=== PATIENT | female | born 1980 | race Caucasian/White ===

== ENCOUNTER 2016-12-10 08:57 | Observation (INO) | payer OTHER ==
[~2016-12-10] VITALS: Ht 160 cm; Wt 65.2 kg
[2016-12-10] VITALS (7 sets, daily range): BP systolic 106–129; BP diastolic 62–84; PULSE 72–98; RESP 16–18; TEMP 96.8–98.2; O2SAT 98–100
[2016-12-10] MEDS ORDERED: cefTRIAXone INJ 1,000 MG in SODIUM CHLORIDE 0.9% INJ 100 ML IV ONE (09:45)
[2016-12-10 10:10] LABS: GLUCOSE,URINE NEG (NEG); KETONE, URINE NEG (NEG); NITRITE,URINE NEG (NEG); PH, URINE 5.5 (5.0-8.5)
[2016-12-10 10:11] LABS: BLOOD, URINE MOD (NEG)
[2016-12-10 10:15] LABS: AUTOMATED NEUTROPHIL # 8.5 TH/MM3 (1.8-7.7); BASOPHIL # 0.2 TH/MM3 (0-0.2); BASOPHIL % 1.2 % (0.0-2.0); EOSINOPHIL # 0.3 TH/MM3 (0-0.4); EOSINOPHIL % 2.1 % (0.0-4.0); HEMATOCRIT 41.1 % (35.0-46.0); LYMPH % 21.1 % (9.0-44.0); LYMPHOCYTE # 2.7 TH/MM3 (1.0-4.8); MEAN CORPUSCULAR HEMOGLOBIN 28.8 PG (27.0-34.0); MEAN CORPUSCULAR HGB CONC 33.1 % (32.0-36.0); METHOD OF COLLECTION CLEAN CATCH; MONO % 6.8 % (0.0-8.0); NEUT % 68.8 % (16.0-70.0); PLATELET COUNT 327 TH/MM3 (150-450); RED BLOOD COUNT 4.72 MIL/MM3 (4.00-5.30); RED CELL DISTRIBUTION WIDTH 14.3 % (11.6-17.2); URINE COLOR YELLOW (YELLW/STRAW); WHITE BLOOD COUNT 12.6 TH/MM3 (4.0-11.0)
[2016-12-10 10:16] LABS: COMMENT (UR) CULT NOT INDICATED; CULTURE IF INDICATED CULT NOT INDICATED; WBC, URINE 0-2 /hpf (0-5)
[2016-12-10 10:19] LABS: HEMO FLAGS DIFF FINAL
[2016-12-10 10:25] LABS: CHLORIDE 108 MEQ/L (98-107); POTASSIUM 3.5 MEQ/L (3.5-5.1); SODIUM (NA) 141 MEQ/L (136-145)
[2016-12-10 10:32] LABS: ANION GAP 7 MEQ/L (5-15); BICARBONATE 26.2 MEQ/L (21.0-32.0); BLOOD UREA NITROGEN 7 MG/DL (7-18)
[2016-12-10 10:35] LABS: ALT (GPT) 15 U/L (10-53); AST (GOT) 5 U/L (15-37); GLOMERULAR FILTRATION RATE 69 ML/MIN (>89)
[2016-12-10 10:37] LABS: TOTAL BILIRUBIN ADULT 0.3 MG/DL (0.2-1.0)
[2016-12-10 10:38] LABS: ALKALINE PHOSPHATASE 59 U/L (45-117)
--- NOTE | 2016-12-10 10:49 | PD ---
HPI Chief Complaint: Pain: Acute or Chronic Time Seen by Provider: 09:28 Travel History International Travel<30 days: No Contact w/Intl Traveler<30days: No Traveled to known affect area: No History of Present Illness HPI 36-year-old female came to the emergency room with history of left-sided facial swelling and pain. Patient says that 2 days ago she had some redness over her nasal bridge. There was some tenderness. It spread to the left side of her face and cheek yesterday and this morning it was quite swollen. She has some pain over the area. No history of fever or chills. Vital signs were stable. No history of diabetes or MRSA in the past as per the patient. Patient denied popping a pimple or any toothache. [facility] Past Medical History Narrative Medical List of her past medical, social and family history has been reviewed from the nursing note. Hx Anticoagulant Therapy: No Diminished Hearing: No Medical other: Yes (DVT) Tetanus Vaccination: Unknown ?: Not Past Surgical History Section: Yes Social History Alcohol Use: Yes (SOC) Tobacco Use: Yes (/ PPD) Substance Use: No Allergies-Medications (Allergen,Severity, Reaction): Coded Allergies: No Known Allergies (Unverified , 12/10/16) Comments No known drug allergies. Reported Meds & Prescriptions Reported Meds & Active Scripts Active Narrative Medication List of her home medications reviewed from the nursing note. Review of Systems Except as stated in HPI: all other systems reviewed are Neg Physical Exam Narrative GENERAL: Awake, alert, moderate distress SKIN: Warm and dry. Erythema, swelling and tenderness on the left side of her cheek about 3 x 3 cm. It starts from the left nasal alae extending up to the maxilla, inferior orbital rim, inferior end of the maxillary sinus HEAD: Atraumatic. Normocephalic. No fluctuance EYES: Pupils equal and round. No scleral icterus. No injection or drainage. ENT: No nasal bleeding or discharge. Mucous membranes pink and moist. Poor dental hygiene with gingivitis but no gum swelling or tenderness corresponding the facial swelling NECK: Trachea midline. No JVD. CARDIOVASCULAR: Regular rate and rhythm. No murmur appreciated. RESPIRATORY: No accessory muscle use. Clear to auscultation. Breath sounds equal bilaterally. GASTROINTESTINAL: Abdomen soft, non-tender, nondistended. Hepatic and splenic margins not palpable. MUSCULOSKELETAL: No obvious deformities. No clubbing. No cyanosis. No edema. NEUROLOGICAL: Awake and alert. No obvious cranial nerve deficits. Motor grossly within normal limits. Normal speech. PSYCHIATRIC: Appropriate mood and affect; insight and judgment normal. Data Data Last Documented VS Orders Complete Blood Count With Diff (12/10/16 09:43) Comprehensive Metabolic Panel (12/10/16 09:43) Lactic Acid Sepsis Protocol (12/10/16 09:43) Urinalysis - C+S If Indicated (12/10/16 09:43) Blood Culture (12/10/16 09:43) Blood Glucose (12/10/16 09:43) Ecg Monitoring (12/10/16:43) Iv Access Insert/Monitor (12/10/16:43) Oximetry (12/10/16 09:43) Oxygen Administration (12/10/16 09:43) C-Reactive Protein (Crp) (12/10/16 09:43) [place] Sedimentation Rate (12/10/16 09:43) Ceftriaxone Inj (Rocephin Inj) (12/10/16 09:45) Admit Order (Ed Use Only) (12/10/16 12:38) Labs MDM Medical Decision Making Medical Screen Exam Complete: Yes Emergency Medical Condition: Yes Medical Record Reviewed: Yes Differential Diagnosis Facial cellulitis, abscess Narrative Course 10:57 AM blood test results are back. Patient has slight leukocytosis. Lactic acid is normal. Rest of the chemistries within normal limit. Awaiting for the CRP. Sedimentation rate is within normal limit. Patient is getting IV Rocephin and IV fluid. 12:32 PM CRP is elevated. Given the location of the cellulitis I would feel more comfortable keeping the patient in the hospital to get him more doses of IV antibiotic. I discussed this with the patient and she has agreed as well. Her was in the room. Awaiting for the hospitalist to admit the patient. Procedures EKG Prior to Arrival: No Diagnosis Primary Impression: Diffuse cellulitis of face Additional Impressions: Facial swelling Gingivitis Admitting Information Admitting Physician Requests: Admit Scripts Cephalexin (Keflex)500 Mg [id number] Mg PO Q12H #14 CAP Ref 0 Prov:Alicia Serrano MD 12/11/16 Clindamycin (Cleocin)150 Mg Vdf284 Mg PO Q6HR #14 CAP Prov:Alicia Serrano MD 12/11/16 Leobardo Ignacio MD Dec 10, 2016 10:49 Neutrophils (%) (Auto) 68.8 % Lymphocytes (%) (Auto) 21.1 % Monocytes (%) (Auto) 6.8 % Eosinophils (%) (Auto) 2.1 % Basophils (%) (Auto) 1.2 % Neutrophils # (Auto) 8.5 TH/MM3 Lymphocytes # (Auto) 2.7 TH/MM3 Monocytes # (Auto) 0.9 TH/MM3 Eosinophils # (Auto) 0.3 TH/MM3 Basophils # (Auto) 0.2 TH/MM3 CBC Comment DIFF FINAL Differential Comment Erythrocyte Sedimentation Rate 20 mm/hr Urine Collection Type CLEAN CATCH Urine Color YELLOW Urine Turbidity CLEAR Urine pH 5.5 Urine Specific [place] 1.025 Urine Protein NEG mg/dL Urine Glucose (UA) NEG mg/dL Urine Ketones NEG mg/dL Urine Occult Blood MOD Urine Nitrite NEG Urine Bilirubin NEG Urine Leukocyte Esterase NEG Urine RBC 10-14 /hpf Urine WBC 0-2 /hpf Urine Squamous Epithelial 6-8 /hpf Cells Microscopic Urinalysis Comment CULT NOT INDICATED Urine Collection Time 10:00 Sodium Level 141 MEQ/L Potassium Level 3.5 MEQ/L Chloride Level 108 MEQ/L Carbon Dioxide Level 26.2 MEQ/L Anion Gap 7 MEQ/L Blood Urea Nitrogen 7 MG/DL Creatinine 0.91 MG/DL Estimat Glomerular Filtration 69 ML/MIN Rate Random Glucose 84 MG/DL Lactic Acid Level 1.3 mmol/L Calcium Level 8.6 MG/DL Total Bilirubin 0.3 MG/DL Aspartate Amino Transf 5 U/L (AST/SGOT) Alanine Aminotransferase 15 U/L (ALT/SGPT) Alkaline Phosphatase 59 U/L C-Reactive Protein 2.02 MG/DL Total Protein 6.8 GM/DL Albumin 3.3 GM/DL [facility] Medical Decision Making Medical Screen Exam Complete: Yes Emergency Medical Condition: Yes Medical Record Reviewed: Yes Differential Diagnosis Facial cellulitis, abscess Narrative Course 10:57 AM blood test results are back. Patient has slight leukocytosis. Lactic acid is normal. Rest of the chemistries within normal limit. Awaiting for the CRP. Sedimentation rate is within normal limit. Patient is getting IV Rocephin and IV fluid. 12:32 PM CRP is elevated. Given the location of the cellulitis I would feel more comfortable keeping the patient in the hospital to get him more doses of IV antibiotic. I discussed this with the patient and she has agreed as well. Her was in the room. Awaiting for the hospitalist to admit the patient. Procedures EKG Prior to Arrival: No Diagnosis Primary Impression: Diffuse cellulitis of face Additional Impression: Facial swelling Admitting Information Admitting Physician Requests: Admit Scripts No Active Prescriptions or Reported Meds Leobardo Ignacio MD Dec 10, 2016 10:49
[2016-12-10] MEDS ORDERED: SODIUM CHLORIDE 0.9% FLUSH 5 ML FLUSH FLUSH PRN (13:00)
[2016-12-10] MEDS ORDERED: CHLORHEXIDINE GLUCONATE 4% SOLN 120 ML BTL TOPICAL ONE ×2 (13:15→21:00)
[2016-12-10] MEDS ORDERED: ACETAMINOPHEN 500 MG CPLT PO ONE (13:15)
[2016-12-10] MEDS ORDERED: ACETAMINOPHEN 500 MG CPLT PO PRN (13:15)
--- NOTE | 2016-12-10 13:16 | HHI.HP ---
[facility] No Primary Care Physician Admission Diagnosis facial cellulitis, facial swelling Diagnoses: Chief Complaint: Left facial swelling Travel History International Travel<30 Days: No Contact w/Intl Traveler <30 Da: No Traveled to Known Affected Are: No History of Present Illness Patient is a 36-year-old female with no past medical history who had a pimple on the bridge of her nose which she scratched and subsequently noted increased erythema along the left side of her face. She did come to the emergency room for further evaluation. She denies any fevers or chills. There is minimal pain in the area. Patient was seen in the emergency room with the mild leukocytosis and cellulitis. Patient did have no previous antibiotic therapy and has no history of cellulitis infections of the face. Patient does however have some erythema and small pustular lesions in the arm which she says occur frequently. Patient is recommended for IV antibiotic therapy and close observation Review of Systems Constitutional: DENIES: Diaphoretic episodes, Fatigue, Fever, Weight gain, Weight loss, Chills, Dizziness, Change in appetite, Night Sweats Endocrine: DENIES: Abnorml menstrual pattern, Heat/cold intolerance, Polydipsia , Polyuria, Polyphagia Eyes: DENIES: Blurred vision, Diplopia, Eye inflammation, Eye pain, Vision loss , Photosensitivity, Double Vision Ears, nose, mouth, throat: DENIES: Tinnitus, Hearing loss, Vertigo, Nasal discharge, Oral lesions, Throat pain, Hoarseness, Ear Pain, Running Nose, Epistaxis, Sinus Pain, Toothache, Odynophagia Respiratory: DENIES: Apneas, Cough, Snoring, Wheezing, Hemoptysis, Sputum production, Shortness of breath Cardiovascular: DENIES: Chest pain, Palpitations, Syncope, Dyspnea on Exertion , PND, Lower Extremity Edema, Orthopnea, Claudication Gastrointestinal: DENIES: Abdominal pain, Black stools, Bloody stools, Constipation, Diarrhea, Nausea, Vomiting, Difficulty Swallowing, Anorexia Genitourinary: DENIES: Abnormal vaginal bleeding, Dysmenorrhea, Dyspareunia, Sexual dysfunction, Urinary frequency, Urinary incontinence, Urgency, Hematuria , Dysuria, Nocturia, Vaginal discharge Musculoskeletal: DENIES: Joint pain, Muscle aches, Stiffness, Joint Swelling, Back pain, Neck pain Integumentary: DENIES: Abnormal pigmentation, Pruritus, Rash, Nail changes, Breast masses, Breast skin changes, Nipple discharge Immunologic/allergic: DENIES: Eczema, Urticaria Neurologic: DENIES: Abnormal gait, Headache, Localized weakness, Paresthesias, Seizures, Speech Problems, Tremor, Poor Balance Psychiatric: DENIES: Anxiety, Confusion, Mood changes, Depression, Hallucinations, Agitation, Suicidal Ideation, Homicidal Ideation, Delusions Past Family Social History Past Medical History none Past Surgical History c/s Reported Medications none Allergies: Coded Allergies: No Known Allergies (Unverified , 12/10/16) Active Ordered Medications reviewed in the EMR Family History Diabetes Social History Smokes half a pack a day, lives with her and family, no alcohol, no IV drug use Physical Exam Vital Signs Vital Signs Date Time Temp Pulse Resp B/P Pulse Ox O2 Delivery O2 Flow Rate FiO2 12/10/16 12:03 80 16 106/62 100 Room Air 12/10/16 10:17 79 16 128/83 100 Nasal Cannula 2 12/10/16 10:09 16 98 Room Air 12/10/16 10:06 Nasal Cannula 2 12/10/16 09:25 16 12/10/16 09:06 98.2 98 16 108/72 98 Physical Exam GENERAL: This is a well-nourished, well-developed patient, in no apparent distress. SKIN: Left facial erythema and edema, well-circumscribed HEAD: Atraumatic. Normocephalic. No temporal or scalp tenderness. EYES: Pupils equal round and reactive. Extraocular motions intact. No scleral icterus. No injection or drainage. ENT: Nose without bleeding, purulent drainage or septal hematoma. Throat without erythema, tonsillar hypertrophy or exudate. Uvula midline. Airway patent. NECK: Trachea midline. No JVD or lymphadenopathy. Supple, nontender, no meningeal signs. CARDIOVASCULAR: Regular rate and rhythm without murmurs, gallops, or rubs. RESPIRATORY: Clear to auscultation. Breath sounds equal bilaterally. No wheezes , rales, or rhonchi. GASTROINTESTINAL: Abdomen soft, non-tender, nondistended. No hepato-splenomegaly , or palpable masses. No guarding. MUSCULOSKELETAL: Extremities without clubbing, cyanosis, or edema. No joint tenderness, effusion, or edema noted. No calf tenderness. Negative Homans sign bilaterally. NEUROLOGICAL: Awake and alert. Cranial nerves II through XII intact. Motor and sensory grossly within normal limits. Five out of 5 muscle strength in all muscle groups. Normal speech. Laboratory Laboratory Tests Test 12/10/16 10:00 White Blood Count 12.6 Red Blood Count 4.72 Hemoglobin 13.6 Hematocrit 41.1 Mean Corpuscular Volume 87.0 Mean Corpuscular Hemoglobin 28.8 Mean Corpuscular Hemoglobin 33.1 Concent Red Cell Distribution Width 14.3 Platelet Count 327 Mean Platelet Volume 9.9 Neutrophils (%) (Auto) 68.8 Lymphocytes (%) (Auto) 21.1 Monocytes (%) (Auto) 6.8 Eosinophils (%) (Auto) 2.1 Basophils (%) (Auto) 1.2 Neutrophils # (Auto) 8.5 Lymphocytes # (Auto) 2.7 Monocytes # (Auto) 0.9 Eosinophils # (Auto) 0.3 Basophils # (Auto) 0.2 CBC Comment DIFF FINAL Differential Comment Erythrocyte Sedimentation Rate 20 Urine Collection Type CLEAN CATCH Urine Color YELLOW Urine Turbidity CLEAR Urine pH 5.5 Urine Specific [place] 1.025 Urine Protein NEG Urine Glucose (UA) NEG Urine Ketones NEG Urine Occult Blood MOD Urine Nitrite NEG Urine Bilirubin NEG Urine Leukocyte Esterase NEG Urine RBC 10-14 Urine WBC 0-2 Urine Squamous Epithelial 6-8 Cells Microscopic Urinalysis Comment CULT NOT INDICATED Urine Collection Time 10:00 Sodium Level 141 Potassium Level 3.5 Chloride Level 108 Carbon Dioxide Level 26.2 Anion Gap 7 Blood Urea Nitrogen 7 Creatinine 0.91 Estimat Glomerular Filtration 69 Rate Random Glucose 84 Lactic Acid Level 1.3 Calcium Level 8.6 Total Bilirubin 0.3 Aspartate Amino Transf 5 (AST/SGOT) Alanine Aminotransferase 15 (ALT/SGPT) Alkaline Phosphatase 59 C-Reactive Protein 2.02 Total Protein 6.8 Albumin 3.3 Date/Time Procedure Status Source Growth 12/10/16 10:05 Aerobic Blood Culture Received Blood Peripheral Pending 12/10/16 10:05 Anaerobic Blood Culture Received Blood Peripheral Pending Result Diagram: 12/10/16 1000 12/10/16 1000 Assessment and Plan Problem List: (1) Cellulitis, face ICD Code: L03.211 Status: Acute Plan: Continue Rocephin IV and oral clindamycin IV hydration patient education We'll follow overnight Alicia Serrano MD Dec 10, 2016 13:16
[2016-12-10] MEDS: SODIUM CHLOR 0.9% 1000 ML INJ 1,000 ML IV SCH ×2 (13:29→21:16)
[2016-12-10] MEDS: CLINDAMYCIN 150 MG CAP PO SCH (17:25)
[2016-12-10] MEDS: SODIUM CHLORIDE 0.9% FLUSH 5 ML FLUSH FLUSH SCH (21:00)
[2016-12-11] VITALS: BP 131/87; PULSE 80; RESP 16; TEMP 97.7; O2SAT 99
[2016-12-11] MEDS: CLINDAMYCIN 150 MG CAP PO SCH ×3 (02:33→11:42)
[2016-12-11 04:00] VITALS: BP 109/69; PULSE 73; RESP 18; TEMP 97.8; O2SAT 97
[2016-12-11 08:00] VITALS: BP 103/73; PULSE 75; RESP 20; TEMP 98.1; O2SAT 99
[2016-12-11] MEDS: SODIUM CHLOR 0.9% 1000 ML INJ 1,000 ML IV SCH (08:48)
[2016-12-11] MEDS: SODIUM CHLORIDE 0.9% FLUSH 5 ML FLUSH FLUSH SCH (08:48)
[2016-12-11 08:49] LABS: AUTOMATED NEUTROPHIL # 5.3 TH/MM3 (1.8-7.7); BASOPHIL # 0.1 TH/MM3 (0-0.2); BASOPHIL % 0.9 % (0.0-2.0); EOSINOPHIL # 0.4 TH/MM3 (0-0.4); EOSINOPHIL % 3.9 % (0.0-4.0); HEMATOCRIT 36.4 % (35.0-46.0); HEMO FLAGS DIFF FINAL; LYMPH % 28.8 % (9.0-44.0); LYMPHOCYTE # 2.6 TH/MM3 (1.0-4.8); MEAN CELL VOLUME 85.7 FL (80.0-100.0); MEAN CORPUSCULAR HEMOGLOBIN 28.3 PG (27.0-34.0); MONO % 8.2 % (0.0-8.0); NEUT % 58.2 % (16.0-70.0); PLATELET COUNT 287 TH/MM3 (150-450); RED BLOOD COUNT 4.25 MIL/MM3 (4.00-5.30); RED CELL DISTRIBUTION WIDTH 13.3 % (11.6-17.2); WHITE BLOOD COUNT 9.1 TH/MM3 (4.0-11.0)
[2016-12-11] MEDS ORDERED: CLIN150 PO (11:21)
--- NOTE | 2016-12-11 11:21 | HHI.DCPOC ---
Discharge Care Plan Diagnosis: (1) Cellulitis, face Goals to Promote Your Health * To prevent worsening of your condition and complications * To maintain your health at the optimal level Directions to Meet Your Goals Take your medications as prescribed Follow your dietary instruction Follow activity as directed Keep your appointments as scheduled Take your immunizations and boosters as scheduled If your symptoms worsen call your PCP, if no PCP go to Urgent Care Center or Emergency Room Smoking is Dangerous to Your Health. Avoid second hand smoke Call the 24-hour hour crisis hotline for domestic abuse at Alicia Serrano MD Dec 11, 2016 11:21
[2016-12-11] MEDS ORDERED: CEPH-460 PO (11:23)
--- NOTE | 2016-12-11 11:23 | HHI.DS ---
Discharge Summary Admission Date Dec 10, 2016 at 12:40 Discharge Date: Dec 11, 2016 Admitting Diagnosis facial cellulitis, facial swelling (1) Cellulitis, face ICD Code: L03.211 Procedures none Brief History - From Admission Patient is a 36-year-old female with no past medical history who had a pimple on the bridge of her nose which she scratched and subsequently noted increased erythema along the left side of her face. She did come to the emergency room for further evaluation. She denies any fevers or chills. There is minimal pain in the area. Patient was seen in the emergency room with the mild leukocytosis and cellulitis. Patient did have no previous antibiotic therapy and has no history of cellulitis infections of the face. Patient does however have some erythema and small pustular lesions in the arm which she says occur frequently. Patient is recommended for IV antibiotic therapy and close observation CBC/BMP: 12/11/16 0830 12/10/16 1000 Significant Findings Laboratory Tests Test 12/10/16 12/11/16 10:00 08:30 White Blood Count 12.6 TH/MM3 (4.0-11.0) Neutrophils # (Auto) 8.5 TH/MM3 (1.8-7.7) Urine Occult Blood MOD (NEG) Urine RBC 10-14 /hpf (0-3) Urine Squamous Epithelial 6-8 /hpf (0-5) Cells Chloride Level 108 MEQ/L (98-107) Estimat Glomerular Filtration 69 ML/MIN (>89) Rate Aspartate Amino Transf 5 U/L (15-37) (AST/SGOT) C-Reactive Protein 2.02 MG/DL (0.00-0.30) Albumin 3.3 GM/DL (3.4-5.0) Monocytes (%) (Auto) 8.2 % (0.0-8.0) PE at Discharge Decreased right facial swelling edema. Patient ambulatory and feels well. GENERAL: This is a well-nourished, well-developed patient, in no apparent distress. CARDIOVASCULAR: Regular rate and rhythm without murmurs, gallops, or rubs. RESPIRATORY: Clear to auscultation. Breath sounds equal bilaterally. No wheezes , rales, or rhonchi. GASTROINTESTINAL: Abdomen soft, non-tender, nondistended. Normal active bowel sounds MUSCULOSKELETAL: Extremities without clubbing, cyanosis, or edema. NEURO: Alert & Oriented x4 to person, place, time, situation. Moves all ext x4 Pt update on day of discharge Patient seen and evaluated in follow-up today for facial cellulitis. Left face swelling is greatly improved and patient. Better. Discharge plans discussed with patient and [employer] [facility] Course Patient was seen and treated for cellulitis of the face which improved quite dramatically overnight with IV antibiotics. Patient's treatment plans discussed with her and she will be discharged home Pt Condition on Discharge: Good Discharge Disposition: Discharge Home Discharge Time: > 30 minutes Discharge Instructions DIET: Follow Instructions for: As Tolerated, No Restrictions Activities you can perform: Regular-No Restrictions New Medications: Cephalexin (Keflex) 500 Mg Cap 500 MG PO Q12H Infection #14 Ref 0 CAP Clindamycin (Cleocin) 150 Mg Cap 450 MG PO Q6HR Infection #14 Alicia Vernon MD Dec 11, 2016 11:23
[2016-12-11 12:00] VITALS: BP 129/85; PULSE 82; RESP 20; TEMP 96.7; O2SAT 99
[2016-12-11] MEDS ORDERED: cefTRIAXone INJ 1,000 MG in SODIUM CHLORIDE 0.9% INJ 100 ML IV SCH (13:00)
== END 2016-12-11 12:49 | disposition home or self-care (01) ==
LOC: PHED 08:57 → INTOOBSV 12:40 → PHEDA 12:40 → PH3B 14:09 → UNDODISIN 12-11 12:49
PROVIDERS: ADMIT Hospitalist; ATTEND Hospitalist
DX: L03.211 Cellulitis of face (principal); K05.10 Chronic gingivitis, plaque induced; F17.210 Nicotine dependence, cigarettes, uncomplicated
CPT/HCPCS: 80053; 81001; 83605; 85025; 85652; 86140; 87040; 96365; 99284; G0378; J0696; J7030

== ENCOUNTER 2017-01-06 11:49 | Emergency (ER) | payer OTHER ==
[~2017-01-06] VITALS: Ht 160 cm; Wt 70.0 kg
[~2017-01-06 11:49] MED LIST: CEPH-460 PO; CLIN150 PO
[2017-01-06 11:51] VITALS: BP 134/86; PULSE 94; RESP 16; TEMP 98.2; O2SAT 99
[2017-01-06] MEDS ORDERED: SODIUM CHLOR 0.9% 1000 ML INJ 1,000 ML IV ONE (14:10)
[2017-01-06] MEDS ORDERED: ONDANSETRON HCL 4 MG/2 ML VIAL IVP ONE (14:15)
--- NOTE | 2017-01-06 14:18 | PD ---
HPI Chief Complaint: Dizziness Time Seen by Provider: 14:10 Travel History International Travel<30 days: No Contact w/Intl Traveler<30days: No Traveled to known affect area: No History of Present Illness HPI 36-year-old female presents for evaluation. For the past 2 days she has had nausea and chills. She's had a decreased appetite because of the nausea. She has had no vomiting. 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 According to her significant other who is at bedside she had another episode of syncope this morning when walking into her room. This was witnessed by him and lasted for about a minute. There is no seizure activity. Currently she is complaining of some nausea and chills. She does endorse a slight cough as well as mild lower back pain. She denies any headache, chest pain or shortness of breath, abdominal pain, dysuria, rash, recent travel, IV drug abuse , palpitations. No sick contacts. No significant past medical history. No other complaints. PFSH Past Medical History Hx Anticoagulant Therapy: No Autoimmune Disease: No Anxiety: Yes Depression: Yes Heart Rhythm Problems: Yes Cancer: No Cardiovascular Problems: Yes Diabetes: No Diminished Hearing: No Endocrine: No Genitourinary: No Immune Disorder: No Musculoskeletal: Yes Neurologic: Yes Psychiatric: Yes Reproductive: No Respiratory: No Migraines: Yes Thyroid Disease: No ?: Not LMP: 2 1/2 weeks ago Past Surgical History Body Medical Devices: IUD implant Section: Yes Gynecologic Surgery: Yes (c section ) Social History Alcohol Use: Yes (SOC) Tobacco Use: Yes (/3 PPD) Substance Use: Yes (marijuana) Allergies-Medications (Allergen,Severity, Reaction): Coded Allergies: Motrin (Verified Adverse Reaction, Severe, 01/06/17) Reported Meds & Prescriptions Reported Meds & Active Scripts Active No Active Prescriptions or Reported Medications Review of Systems Except as stated in HPI: all other systems reviewed are Neg Physical Exam Narrative GENERAL: Well-developed well-nourished female in no acute distress ambulate in the ED. She is drinking hot chocolate during initial examination. SKIN: Warm and dry. HEAD: Atraumatic. Normocephalic. EYES: Pupils equal and round. No scleral icterus. No injection or drainage. ENT: No nasal bleeding or discharge. Mucous membranes pink and moist. NECK: Trachea midline. No JVD. No lymphadenopathy. Neck supple full range of motion. CARDIOVASCULAR: Regular rate and rhythm. No murmur appreciated. RESPIRATORY: No accessory muscle use. Clear to auscultation. Breath sounds equal bilaterally. GASTROINTESTINAL: Abdomen soft, non-tender, nondistended. Hepatic and splenic margins not palpable. MUSCULOSKELETAL: No obvious deformities. No tenderness to palpation along the neck or back. No CVA tenderness. NEUROLOGICAL: Awake and alert. No obvious cranial nerve deficits. Motor grossly within normal limits. Normal speech. PSYCHIATRIC: Appropriate mood and affect; insight and judgment normal. Data Data Last Documented VS Vital Signs Date Time Temp Pulse Resp B/P Pulse Ox O2 Delivery O2 Flow Rate FiO2 01/06/17 11:51 98.2 94 16 134/86 99 Orders Electrocardiogram (01/06/17 14:10) Ed Urine Pregnancytest Poc (01/06/17 14:10) Complete Blood Count With Diff (01/06/17 14:10) Comprehensive Metabolic Panel (01/06/17 14:10) Magnesium (Mg) (01/06/17 14:10) Chest, Single Ap (01/06/17 14:10) Iv Access Insert/Monitor (01/06/17 14:10) Ondansetron Inj (Zofran Inj) (01/06/17 14:15) Sodium Chlor 0.9% 1000 Ml Inj (Ns 1000 M (01/06/17 14:10) Influenzae A/B Antigen (01/06/17 14:10) Urinalysis - C+S If Indicated (01/06/17 14:10) Labs Laboratory Tests Test 01/06/17 14:35 White Blood Count 8.5 TH/MM3 Red Blood Count 4.37 MIL/MM3 Hemoglobin 12.7 GM/DL Hematocrit 38.2 % Mean Corpuscular Volume 87.5 FL Mean Corpuscular Hemoglobin 29.0 PG Mean Corpuscular Hemoglobin 33.1 % Concent Red Cell Distribution Width 14.4 % Platelet Count 294 TH/MM3 Mean Platelet Volume 9.9 FL Neutrophils (%) (Auto) 48.7 % Lymphocytes (%) (Auto) 38.2 % Monocytes (%) (Auto) 7.7 % Eosinophils (%) (Auto) 4.1 % Basophils (%) (Auto) 1.3 % Neutrophils # (Auto) 4.2 TH/MM3 Lymphocytes # (Auto) 3.3 TH/MM3 Monocytes # (Auto) 0.7 TH/MM3 Eosinophils # (Auto) 0.3 TH/MM3 Basophils # (Auto) 0.1 TH/MM3 CBC Comment DIFF FINAL Differential Comment Urine Color LIGHT-YELLOW Urine Turbidity CLEAR Urine pH 6.0 Urine Specific [place] 1.016 Urine Protein NEG mg/dL Urine Glucose (UA) NEG mg/dL Urine Ketones NEG mg/dL Urine Occult Blood NEG Urine Nitrite NEG Urine Bilirubin NEG Urine Urobilinogen LESS THAN 2.0 MG/DL Urine Leukocyte Esterase MOD Urine WBC 1 /hpf Urine Squamous Epithelial 4 /hpf Cells Urine Bacteria RARE /hpf Microscopic Urinalysis Comment CULT NOT INDICATED Sodium Level 141 MEQ/L Potassium Level 4.3 MEQ/L Chloride Level 109 MEQ/L Carbon Dioxide Level 25.2 MEQ/L Anion Gap 7 MEQ/L Blood Urea Nitrogen 16 MG/DL Creatinine 0.93 MG/DL Estimat Glomerular Filtration 67 ML/MIN Rate Random Glucose 97 MG/DL Calcium Level 8.9 MG/DL Magnesium Level 2.0 MG/DL Total Bilirubin 0.2 MG/DL Aspartate Amino Transf 11 U/L (AST/SGOT) Alanine Aminotransferase 14 U/L (ALT/SGPT) Alkaline Phosphatase 53 U/L Total Protein 6.4 GM/DL Albumin 3.3 GM/DL [facility] Medical Decision Making Medical Screen Exam Complete: Yes Emergency Medical Condition: Yes Medical Record Reviewed: Yes Interpretation(s) EKG sinus rhythm, rate 59, OK interval 114, no evidence of Brugada/Parkinson white/ventricular hypertrophy/heart block CBC unremarkable CMP unremarkable Urinalysis moderate leukocytes otherwise unremarkable, urine test negative Differential Diagnosis Viral syndrome, dehydration, gastroenteritis, electrolyte abnormality, influenza , bronchitis, pneumonia, arrhythmia, seizure Narrative Course This is a 36-year-old female who has had nausea and chills for the past 2 days. She presents after having one single episode yesterday evening and one this morning. She has had a slight cough but otherwise is without any focal complaints. She is currently resting comfortably. Her vital signs are stable. Plan is for basic lab work, EKG, IV fluids and Zofran. The patient's laboratory imaging studies are reassuring. She has been doing well during her hospital stay, able to tolerate fluids and food by mouth. Suspect syncope secondary to vasovagal versus orthostatic changes. Recommended nourishment by mouth. She is being discharged with Zofran as well as a note for work. Diagnosis Primary Impression: Syncope Qualified Code: R55 - Syncope, unspecified syncope type Additional Impression: Nausea Departure Forms: Tests/Procedures, Work Release Enter return to work date: Jan 08, 2017 Additional Instructions: Zofran for nausea. Stay well hydrated well-nourished, get plenty of rest. Follow-up with primary care physician and return for any new or worsening symptoms. Med/Other Pt SpecificInfo: Prescription(s) given Scripts Ondansetron (Zofran)4 Mg Tab4 Mg PO Q6HR PRN (NAUSEA OR VOMITING) #15 TAB Ref 0 Prov:Nadia Brooks MD 01/06/17 Disposition: 01 DISCHARGE HOME Condition: Stable Jani Marshall Jan 06, 2017 14:18
--- NOTE | 2017-01-06 14:47 | RADRPT ---
EXAM DATE/TIME: 01/06/2017 14:14 [facility] COMPARISON: No previous studies available for comparison. INDICATIONS : Cough. MEDICAL HISTORY : None. SURGICAL HISTORY : None. ENCOUNTER: Initial ACUITY: 3 days PAIN SCORE: 0/10 LOCATION: Bilateral chest FINDINGS: A single view of the chest demonstrates the lungs to be symmetrically aerated without evidence of mas s, infiltrate or effusion. The cardiomediastinal contours are unremarkable. Osseous structures are intact with some degenerative spurring of the dorsal spine. CONCLUSION: No acute cardiopulmonary process. Fito Santos MD on January 06, 2017 at 14:45 Board Certified Radiologist. This report was verified electronically.
[2017-01-06 15:01] LABS: AUTOMATED NEUTROPHIL # 4.2 TH/MM3 (1.8-7.7); BASOPHIL # 0.1 TH/MM3 (0-0.2); BASOPHIL % 1.3 % (0.0-2.0); EOSINOPHIL # 0.3 TH/MM3 (0-0.4); EOSINOPHIL % 4.1 % (0.0-4.0); HEMATOCRIT 38.2 % (35.0-46.0); HEMO FLAGS DIFF FINAL; LYMPH % 38.2 % (9.0-44.0); LYMPHOCYTE # 3.3 TH/MM3 (1.0-4.8); MEAN CELL VOLUME 87.5 FL (80.0-100.0); MEAN CORPUSCULAR HGB CONC 33.1 % (32.0-36.0); MONO % 7.7 % (0.0-8.0); NEUT % 48.7 % (16.0-70.0); PLATELET COUNT 294 TH/MM3 (150-450); RED BLOOD COUNT 4.37 MIL/MM3 (4.00-5.30); RED CELL DISTRIBUTION WIDTH 14.4 % (11.6-17.2); WHITE BLOOD COUNT 8.5 TH/MM3 (4.0-11.0)
[2017-01-06 15:11] LABS: BACTERIA, URINE RARE /hpf; BLOOD, URINE NEG (NEG); COMMENT (UR) CULT NOT INDICATED; CULTURE IF INDICATED CULT NOT INDICATED; GLUCOSE,URINE NEG (NEG); KETONE, URINE NEG (NEG); NITRITE,URINE NEG (NEG); SQUAMOUS EPITHELIAL CELL URINE 4 /hpf (0-5); URINE COLOR LIGHT-YELLOW (YELLW/STRAW)
[2017-01-06 15:23] LABS: ALKALINE PHOSPHATASE 53 U/L (45-117); TOTAL BILIRUBIN ADULT 0.2 MG/DL (0.2-1.0)
[2017-01-06 15:30] LABS: ALT (GPT) 14 U/L (10-53); ANION GAP 7 MEQ/L (5-15); AST (GOT) 11 U/L (15-37); BICARBONATE 25.2 MEQ/L (21.0-32.0); BLOOD UREA NITROGEN 16 MG/DL (7-18); CHLORIDE 109 MEQ/L (98-107); GLOMERULAR FILTRATION RATE 67 ML/MIN (>89); SODIUM (NA) 141 MEQ/L (136-145)
[2017-01-06 15:32] LABS: POTASSIUM 4.3 MEQ/L (3.5-5.1)
[2017-01-06] MEDS ORDERED: ZOFR4TAB PO (15:42)
--- NOTE | 2017-01-06 15:47 | PD ---
Data Data Last Documented VS Vital Signs Date Time Temp Pulse Resp B/P Pulse Ox O2 Delivery O2 Flow Rate FiO2 01/06/17 11:51 98.2 94 16 134/86 99 Orders Electrocardiogram (01/06/17 14:10) Ed Urine Pregnancytest Poc (01/06/17 14:10) Complete Blood Count With Diff (01/06/17 14:10) Comprehensive Metabolic Panel (01/06/17 14:10) Magnesium (Mg) (01/06/17 14:10) Chest, Single Ap (01/06/17 14:10) Iv Access Insert/Monitor (01/06/17 14:10) Ondansetron Inj (Zofran Inj) (01/06/17 14:15) Sodium Chlor 0.9% 1000 Ml Inj (Ns 1000 M (01/06/17 14:10) Influenzae A/B Antigen (01/06/17 14:10) Urinalysis - C+S If Indicated (01/06/17 14:10) Labs Laboratory Tests Test 01/06/17 14:35 White Blood Count 8.5 TH/MM3 Red Blood Count 4.37 MIL/MM3 Hemoglobin 12.7 GM/DL Hematocrit 38.2 % Mean Corpuscular Volume 87.5 FL Mean Corpuscular Hemoglobin 29.0 PG Mean Corpuscular Hemoglobin 33.1 % Concent Red Cell Distribution Width 14.4 % Platelet Count 294 TH/MM3 Mean Platelet Volume 9.9 FL Neutrophils (%) (Auto) 48.7 % Lymphocytes (%) (Auto) 38.2 % Monocytes (%) (Auto) 7.7 % Eosinophils (%) (Auto) 4.1 % Basophils (%) (Auto) 1.3 % Neutrophils # (Auto) 4.2 TH/MM3 Lymphocytes # (Auto) 3.3 TH/MM3 Monocytes # (Auto) 0.7 TH/MM3 Eosinophils # (Auto) 0.3 TH/MM3 Basophils # (Auto) 0.1 TH/MM3 CBC Comment DIFF FINAL Differential Comment Urine Color LIGHT-YELLOW Urine Turbidity CLEAR Urine pH 6.0 Urine Specific [place] 1.016 Urine Protein NEG mg/dL Urine Glucose (UA) NEG mg/dL Urine Ketones NEG mg/dL Urine Occult Blood NEG Urine Nitrite NEG Urine Bilirubin NEG Urine Urobilinogen LESS THAN 2.0 MG/DL Urine Leukocyte Esterase MOD Urine WBC 1 /hpf Urine Squamous Epithelial 4 /hpf Cells Urine Bacteria RARE /hpf Microscopic Urinalysis Comment CULT NOT INDICATED Sodium Level 141 MEQ/L Potassium Level 4.3 MEQ/L Chloride Level 109 MEQ/L Carbon Dioxide Level 25.2 MEQ/L Anion Gap 7 MEQ/L Blood Urea Nitrogen 16 MG/DL Creatinine 0.93 MG/DL Estimat Glomerular Filtration 67 ML/MIN Rate Random Glucose 97 MG/DL Calcium Level 8.9 MG/DL Magnesium Level 2.0 MG/DL Total Bilirubin 0.2 MG/DL Aspartate Amino Transf 11 U/L (AST/SGOT) Alanine Aminotransferase 14 U/L (ALT/SGPT) Alkaline Phosphatase 53 U/L Total Protein 6.4 GM/DL Albumin 3.3 GM/DL MDM Supervised Visit with FUNMILAYO: Yes Narrative Course The history, exam, and medical decision-making in the associated midlevel provider note were completed with my assistance. I reviewed and agree with the findings presented. I attest that I had a [id number] encounter with the patient on the same day, and personally performed and documented my assessment and findings in the medical record. *My assessment and Findings: This is a 36-year-old female who presents to the emergency department with nausea, chills and 2 episodes of syncope. She is quite well-appearing on exam. Labs are all reassuring. EKG demonstrates no arrhythmia or preexcitation. Patient feels much better after IV fluids and Zofran. I don't suspect an emergent etiology of her symptoms and I think she can be evaluated further as an outpatient by her primary care physician. Diagnosis Primary Impression: Syncope Qualified Code: R55 - Syncope, unspecified syncope type Additional Impression: Nausea Departure Forms: Work Release, Enter return to work date: Tests/Procedures Additional Instruction: Zofran for nausea. Stay well hydrated well-nourished, get plenty of rest. Follow-up with primary care physician and return for any new or worsening symptoms. Scripts Ondansetron (Zofran)4 Mg Tab4 Mg PO Q6HR PRN (NAUSEA OR VOMITING) #15 TAB Ref 0 Prov:Nadia Brooks MD 01/06/17 Disposition: DISCHARGE HOME Condition: Stable Nadia Brooks MD Jan 06, 2017 15:46
--- NOTE | 2017-01-08 11:19 | EKG ---
Date Performed: 01/06/2017 Time Performed: 14:44:07 PTAGE: 36 years EKG: SINUS BRADYCARDIA WITH SINUS ARRHYTHMIA WITH SHORT HI INTERVAL BORDERLINE ECG NO PREVIOUS TRACING DOCTOR: Melba Salinas Interpretating Date/Time 01/08/2017 11:16:45
== END 2017-01-06 16:45 | disposition home or self-care (01) ==
LOC: NEPB 11:49
DX: R55 Syncope and collapse (principal); R05 Cough; R11.2 Nausea with vomiting, unspecified; M54.5 Low back pain; R00.1 Bradycardia, unspecified; I49.8 Other specified cardiac arrhythmias; F17.210 Nicotine dependence, cigarettes, uncomplicated
CPT/HCPCS: 71010; 80053; 81001; 83735; 84703; 85025; 87804; 93005; 96374; 99284; J2405; J7030

== ENCOUNTER 2017-01-12 16:06 | Emergency (ER) | payer OTHER ==
[~2017-01-12] VITALS: Ht 160 cm; Wt 58.0 kg
[~2017-01-12 16:06] MED LIST changes: -CEPH-460 PO; -CLIN150 PO; +ZOFR4TAB PO
[2017-01-12 16:07] VITALS: BP 133/75; PULSE 80; RESP 18; TEMP 98.1; O2SAT 97
--- NOTE | 2017-01-12 17:09 | PD ---
HPI Chief Complaint: GI Complaint Time Seen by Provider: 17:07 Travel History International Travel<30 days: No Contact w/Intl Traveler<30days: No Traveled to known affect area: No History of Present Illness HPI 36-year-old female presents to emergency department requesting a work release note to return back to work after being sent home with her today. She said diarrhea started yesterday. She denies abdominal pain, nausea, vomiting. Denies fever, chills. She says that her works protocol for her to get a work release note to return back to work. She has taken Pepto-Bismol with good relief of the diarrhea. She has no other medical complaints. Allergies to ibuprofen. No other modifying factors or associated signs and symptoms. History Past Medical Histgory Hx Cancer: No Social History Alcohol Use: No Tobacco Use: Yes Allergies-Medications (Allergen,Severity, Reaction): Coded Allergies: Motrin (Verified Adverse Reaction, Severe, 01/12/17) Reported Meds & Prescriptions Reported Meds & Active Scripts Active Zofran (Ondansetron HCl) 4 Mg Tab 4 Mg PO Q6HR PRN Review of Systems Except as stated in HPI: all other systems reviewed are Neg Physical Exam Narrative GENERAL: Well-nourished, well-developed female patient, in no acute distress SKIN: Warm and dry. HEAD: Atraumatic. Normocephalic. EYES: Pupils equal and round. No scleral icterus. No injection or drainage. ENT: Mucosa pink and moist. Airway patent. NECK: Trachea midline. CARDIOVASCULAR: Regular rate and rhythm. No murmur appreciated. RESPIRATORY: No accessory muscle use. Clear to auscultation. Breath sounds equal bilaterally. GASTROINTESTINAL: Abdomen soft, non-tender, nondistended. Hepatic and splenic margins not palpable. Bowel sounds are active 4 quadrants. MUSCULOSKELETAL: No obvious deformities. No clubbing. No cyanosis. No edema. NEUROLOGICAL: Awake and alert. Oriented 3. No obvious cranial nerve deficits. Motor grossly within normal limits. Normal speech. PSYCHIATRIC: Appropriate mood and affect; insight and judgment normal. Data Data Last Documented VS Vital Signs Date Time Temp Pulse Resp B/P Pulse Ox O2 Delivery O2 Flow Rate FiO2 01/12/17 16:07 98.1 80 18 133/75 97 Room Air MDM Medical Screen Exam Complete: Yes Emergency Medical Condition: No Differential Diagnosis Medical clearance, work release, diarrhea Narrative Course 36-year-old female requesting work release note to return back to work after being sent home. She said diarrhea since yesterday. She took Pepto-Bismol today with good relief of diarrhea. She has no current complaints. Denies abdominal pain, nausea, vomiting, fever, chills. Vital signs are stable and the patient is stable for outpatient follow-up and treatment. The patient has no urgent or emergent medical complaints. There is no emergent or urgent medical need at this time. I instructed the patient to follow up with their primary care provider. A medical screening exam was performed: At the time of evaluation the presenting medical condition was determined not to be of an emergent nature. The patient was given the option of receiving additional care, but declined. Patient was given options for additional community resources from which to obtain care. The Patient Has Been advised to seek medical attention for their presenting complaint. The patient has been advised to return to the ER at any time if an emergent condition develops. Primary Impression: Encounter for medical screening examination Condition: Stable Carmelina Wang Jan 12, 2017 17:09
== END 2017-01-12 17:28 | disposition left against medical advice (07) ==
LOC: NEPB 16:06
DX: R19.7 Diarrhea, unspecified (principal)
CPT/HCPCS: 99281

== ENCOUNTER 2017-02-06 17:09 | Emergency (ER) | payer OTHER ==
[~2017-02-06] VITALS: Ht 157.5 cm; Wt 61.5 kg
[2017-02-06 17:18] VITALS: BP 118/80; PULSE 92; RESP 16; TEMP 98.5; O2SAT 97
--- NOTE | 2017-02-06 17:34 | PD ---
HPI Chief Complaint: Cold / Flu Symptoms Time Seen by Provider: 17:32 Travel History International Travel<30 days: No Contact w/Intl Traveler<30days: No Traveled to known affect area: No History of Present Illness HPI Patient complaining of cold-like symptoms began 2 or 3 days ago. Patient reports cough, congestion, subjective fevers, nausea, and loose stool. Patient states she's been taking Motrin for the pain and seems to helped some. Denies anything making it worse. Denies any chest pain, shortness of breath, abdominal pain, back pain, or headaches. Cough is nonproductive. Patient's significant other with similar symptoms. PFSH Past Medical History Hx Anticoagulant Therapy: No Anxiety: Yes Depression: Yes Heart Rhythm Problems: Yes Cardiovascular Problems: Yes Diabetes: No Diminished Hearing: No Musculoskeletal: Yes Neurologic: Yes Psychiatric: Yes Migraines: Yes Tetanus Vaccination: < 5 Years Influenza Vaccination: No ?: Not LMP: 3 WKS Past Surgical History Surgical History: No Previous Surgery Body Medical Devices: IUD implant Section: Yes Gynecologic Surgery: Yes (c section ) Social History Alcohol Use: No Tobacco Use: Yes (4 cigs day) Substance Use: No Allergies-Medications (Allergen,Severity, Reaction): Coded Allergies: Motrin (Verified Adverse Reaction, Severe, 02/06/17) Reported Meds & Prescriptions Reported Meds & Active Scripts Active Ventolin Hfa 18 GM Inh (Albuterol Sulfate) 90 Mcg/Act Aer 2 Puff INH Q4H PRN Review of Systems Except as stated in HPI: all other systems reviewed are Neg Physical Exam Narrative GENERAL: Well-developed, overly nourished, in no acute distress, and non-ill appearing. SKIN: Focused skin assessment warm and dry. HEAD: Atraumatic. Normocephalic. EYES: Pupils equal and round. EOMI. No scleral icterus. No injection or drainage. ENT: No nasal bleeding or discharge. Mucous membranes pink and moist. Tympanic membranes pearly augustine bilaterally. Posterior pharynx nonerythematous without exudate. Uvula is midline. No tenderness to facial sinuses to palpation. NECK: Trachea midline. No cervical lymphadenopathy. Supple. No nuclear rigidity. CARDIOVASCULAR: Regular rate and rhythm. No murmur appreciated. RESPIRATORY: No accessory muscle use. No respiratory distress. Clear to auscultation. Breath sounds equal bilaterally. GASTROINTESTINAL: Abdomen soft, non-tender, nondistended. Hepatic and splenic margins not palpable. No pulsatile mass. MUSCULOSKELETAL: No obvious deformities. No clubbing. No cyanosis. No edema. Full range of motion. NEUROLOGICAL: Awake and alert. No obvious cranial nerve deficits. Motor grossly within normal limits. Normal speech. PSYCHIATRIC: Appropriate mood and affect; insight and judgment normal. Data Data Last Documented VS Vital Signs Date Time Temp Pulse Resp B/P Pulse Ox O2 Delivery O2 Flow Rate FiO2 02/06/17 17:28 20 02/06/17 17:18 98.5 92 118/80 97 Orders Influenzae A/B Antigen (02/06/17 17:31) Chest, Single Ap (02/06/17 ) MDM Medical Decision Making Medical Screen Exam Complete: Yes Emergency Medical Condition: Yes Differential Diagnosis Influenza, viral syndrome, upper respiratory infection, bronchitis, pneumonia, other Narrative Course Patients symptom complex is consistent with bronchitis. The patient is non-ill appearing and is in no respiratory distress and comfortable. The patient moves air well and oxygen saturations are normal. Chest x-ray revealed no evidence of obvious consolidation of infiltrate. There is no clinical evidence to suggest pneumonia at this time. Plan of care and management were discussed with the patient who agreed with plan. The patient was instructed to follow up with their physician and instructed to return if worsens, progressively worsening shortness of breath or difficulty breathing, persistent fever, chest pains or discomfort, inability to keep medication or fluids down with or without vomiting , or as needed. Patient in no obvious distress upon re-evaluation. All pertinent laboratory/ Radiology result(s) discussed with patient. Patient was asked if they wanted to speak to my attending, which the patient did not wish to do at this time. Any questions/concerns in reference to patient diagnosis/condition discussed and clarified prior to patient's discharge. Reinforced sheer importance of close follow up with patient's primary physician or primary care clinic. Instructed patient to return to ED immediately, if symptoms return/worsen. Pt showed understanding of above instructions. Further instructions and recommendations were detailed in discharge paperwork. Pt ambulated without difficulty out of ED at discharge. Diagnosis Primary Impression: Bronchitis Patient Instructions: Acute Bronchitis (ED), General Instructions Additional Instructions: Follow-up with your primary care physician in 2-3 days for evaluation. Take all medication as prescribed. Use [id number] cold and flu medication for symptomatic relief. Follow instructions on the packaging. Drink plenty of non- caffeinated and nonalcoholic fluids. Return to the emergency department if symptoms get worse. Med/Other Pt SpecificInfo: Prescription(s) given Scripts Albuterol 18 GM Inh (Ventolin Hfa 18 GM Inh)90 Mcg/Act Aer2 Puff INH Q4H PRN ( COUGH) #1 INHALER Ref 0 Prov:Rakesh Reynolds MD 02/06/17 Disposition: 01 DISCHARGE HOME Condition: Stable Jimmy Celeste Feb 06, 2017 17:34
--- NOTE | 2017-02-06 18:52 | RADHPO ---
EXAM DATE/TIME: 02/06/2017 18:22 [facility] COMPARISON: CHEST SINGLE AP, January 06, 2017, 14:14. INDICATIONS : Short of breath, cough, fever, chest and neck pain MEDICAL HISTORY : None. SURGICAL HISTORY : None. ENCOUNTER: Initial ACUITY: 4 - 6 days PAIN SCORE: 7/10 LOCATION: Bilateral chest FINDINGS: A single view of the chest demonstrates the lungs to be symmetrically aerated without evidence of mas s, infiltrate or effusion. The cardiomediastinal contours are unremarkable. Osseous structures are intact.CONCLUSION: The lungs are clear. Vick Guallpa MD on February 06, 2017 at 18:50 Board Certified Radiologist. This report was verified electronically.
[2017-02-06] MEDS ORDERED: VENTAER INH (19:19)
== END 2017-02-06 19:32 | disposition home or self-care (01) ==
LOC: PHEFT 17:09
DX: J40 Bronchitis, not specified as acute or chronic (principal); F17.210 Nicotine dependence, cigarettes, uncomplicated
CPT/HCPCS: 71010; 87804; 99284

== ENCOUNTER 2017-09-11 13:58 | Emergency (ER) | payer OTHER ==
[~2017-09-11] VITALS: Ht 162.6 cm; Wt 60.0 kg
[~2017-09-11 13:58] MED LIST changes: +VENTAER INH; -ZOFR4TAB PO
[2017-09-11 14:00] VITALS: BP 114/75; PULSE 92; RESP 18; TEMP 99.2; O2SAT 100
[2017-09-11] MEDS ORDERED: predniSONE 20 MG TAB PO ONE (15:45)
--- NOTE | 2017-09-11 15:47 | PD ---
HPI Chief Complaint: Cold / Flu Symptoms Time Seen by Provider: 15:18 Travel History International Travel<30 days: No Contact w/Intl Traveler<30days: No Traveled to known affect area: No History of Present Illness HPI Patient is a 37-year-old female who presents to emergency room complains of URI , cold, congestion, productive cough with thick yellow mucus which has been ongoing for the past week and a half. Denies any sick contacts. Denies fevers, reports chills at night. Reports that influenza vaccine is up to date. Patient reports that she is a smoker, methanol cigarettes do help with her symptoms. Denies chest pain. Denies any recent travels/trips. PFSH Past Medical History Hx Anticoagulant Therapy: No Anxiety: Yes Depression: Yes Heart Rhythm Problems: Yes Cardiovascular Problems: Yes Diabetes: No Diminished Hearing: No Musculoskeletal: Yes Neurologic: Yes Psychiatric: Yes Migraines: Yes ?: Not LMP: 08/21/17 : 2 Para: 2 Past Surgical History Body Medical Devices: IUD implant Section: Yes Gynecologic Surgery: Yes (c section ) Social History Alcohol Use: No Tobacco Use: Yes (1/2 PPD) Substance Use: No Allergies-Medications (Allergen,Severity, Reaction): Coded Allergies: ibuprofen (Unverified Adverse Reaction, Severe, 09/11/17) naproxen (Unverified Adverse Reaction, Intermediate, Nausea/Vomiting, ) Reported Meds & Prescriptions Reported Meds & Active Scripts Active Azithromycin 500 Mg Tab 500 Mg PO DAILY Prednisone 20 Mg Tab 20 Mg PO BID 5 Days Ventolin Hfa 18 GM Inh (Albuterol Sulfate) 90 Mcg/Act Aer 2 Puff INH Q4-6H PRN Ventolin Hfa 18 GM Inh (Albuterol Sulfate) 90 Mcg/Act Aer 2 Puff INH Q4H PRN Review of Systems General / Constitutional: Positive: Chills, No: Fever Eyes: No: Visual changes HENT: No: Headaches Cardiovascular: No: Chest Pain or Discomfort Respiratory: Positive: Cough, Wheezing, No: Shortness of Breath Gastrointestinal: No: Abdominal Pain Genitourinary: No: Dysuria Musculoskeletal: No: Pain Skin: No Rash Neurologic: No: Weakness Psychiatric: No: Depression Endocrine: No: Polydipsia Hematologic/Lymphatic: No: Easy Bruising Physical Exam Narrative GENERAL: Well-nourished, well-developed patient. SKIN: Focused skin assessment warm/dry. HEAD: Normocephalic. EYES: No scleral icterus. No injection or drainage. NECK: Supple, trachea midline. No JVD or lymphadenopathy. CARDIOVASCULAR: Regular rate and rhythm without murmurs, gallops, or rubs. RESPIRATORY: Patient with scattered wheezing to lower lobes of the lungs. No accessory muscle use. GASTROINTESTINAL: Abdomen soft, non-tender, nondistended. MUSCULOSKELETAL: No cyanosis, or edema. BACK: Nontender without obvious deformity. No CVA tenderness. Data Data Last Documented VS Vital Signs Date Time Temp Pulse Resp B/P (MAP) Pulse Ox O2 Delivery O2 Flow Rate FiO2 09/11/17 14:00 99.2 92 18 114/75 (88) 100 Orders Orders Group A Rapid Strep Screen (09/11/17 15:18) Influenzae A/B Antigen (09/11/17 15:18) Chest, Pa & Lat (09/11/17 15:18) Ed Urine Pregnancytest Poc (09/11/17 15:18) Albuterol-Ipratropium Neb (Duoneb Neb) (09/11/17 15:45) Prednisone (Deltasone) (09/11/17 15:45) MDM Medical Decision Making Medical Screen Exam Complete: Yes Emergency Medical Condition: Yes Medical Record Reviewed: Yes Interpretation(s) Vital Signs Date Time Temp Pulse Resp B/P (MAP) Pulse Ox O2 Delivery O2 Flow Rate FiO2 09/11/17 14:00 99.2 92 18 114/75 (88) 100 Differential Diagnosis Bronchitis, pneumonia, viral syndrome, COPD exacerbation, influenza Narrative Course During the course of the patients emergency department visit, the patients history, examination, and differential diagnosis were reviewed with the patient. The patient was placed on a tool specialist with oximetry and frequent blood pressure monitoring. The patient was initially provided duonebs as well as prednisone as well as azithromycin Radiology studies were reviewed and remarkable for: neg xray of chest Patient is feeling much better at this time. Patient instructed to Stop smoking. Plan to treat her for bronchitis, she will return to the emergency room as needed. She with her pcp as outpatient Diagnosis Primary Impression: Acute bronchitis Qualified Codes: J20.9 - Acute bronchitis, unspecified Additional Impression: Smoking addiction Patient Instructions: General Instructions Additional Instructions: Please follow up with your primary care doctor Please take all medications as prescribed Return to ER as needed or if symptoms worsen Please stop smoking! Med/Other Pt SpecificInfo: Prescription(s) given Scripts Azithromycin (Azithromycin) 500 Mg Tab 500 MG PO DAILY for Infection, #5 TAB 0 Refills Prov: Aislinn Gomez DO 09/11/17 Prednisone (Prednisone) 20 Mg Tab 20 MG PO BID for 5 Days, #10 TAB 0 Refills Prov: Aislinn Gomez DO 09/11/17 Albuterol 18 GM Inh (Ventolin Hfa 18 GM Inh) 90 Mcg/Act Aer 2 PUFF INH Q4-6H Y for SHORTNESS OF BREATH, #1 INHALER 0 Refills Prov: Aislinn Gomez DO 09/11/17 Disposition: 01 DISCHARGE HOME Condition: Stable Aislinn Gomez DO Sep 11, 2017 15:47
--- NOTE | 2017-09-11 15:48 | RADRPT ---
EXAM DATE/TIME: 09/11/2017 15:27 [facility] COMPARISON: No previous studies available for comparison. INDICATIONS : Chest pain and shortness of breath. Coughing and wheezing- Chest congestion. MEDICAL HISTORY : AFIB. SURGICAL HISTORY : section. ENCOUNTER: Initial ACUITY: 2 weeks PAIN SCORE: 10/10 LOCATION: Bilateral chest FINDINGS: PA and lateral views of the chest demonstrate the lungs to be symmetrically aerated without evidence of mass, infiltrate or effusion. The cardiomediastinal contours are unremarkable. Osseous structure s are intact. CONCLUSION: No acute disease. Miguel Silverman MD on September 11, 2017 at 15:45 Board Certified Radiologist. This report was verified electronically.
[2017-09-11] MEDS: RESP: ALBUTEROL 2.5 MG/IPRATROPIUM 0.5 MG NEB (SCH) INH (16:01)
[2017-09-11] MEDS ORDERED: VENTAER INH (16:31)
[2017-09-11] MEDS ORDERED: PRED20 PO (16:31)
[2017-09-11] MEDS ORDERED: AZIT500T2 PO (16:31)
== END 2017-09-11 17:45 | disposition home or self-care (01) ==
LOC: NEPD 13:58
DX: J20.9 Acute bronchitis, unspecified (principal); F17.210 Nicotine dependence, cigarettes, uncomplicated
CPT/HCPCS: 71020; 94664; 99284; J7512